=== PATIENT | male | born 1990 | race Caucasian/White ===

== ENCOUNTER 2017-04-17 16:28 | Emergency (ER) | payer OTHER ==
[~2017-04-17] VITALS: Ht 177.8 cm; Wt 84.2 kg
[~2017-04-17 16:28] MED LIST: PAXIL30 MG PO
[2017-04-17] MEDS ORDERED: CIALIS20 MG PO (17:01)
[2017-04-17 18:22] VITALS: BP 135/79
== END 2017-04-17 18:23 | disposition home or self-care (01) ==
LOC: EME 16:28
DX: H43.393 Other vitreous opacities, bilateral (principal); R51 Headache; H53.8 Other visual disturbances
CPT/HCPCS: 99281; 99284

== ENCOUNTER → 2018-02-15 | Outpatient (CLI) | payer OTHER ==
[~2018-02-15] VITALS: Ht 180.3 cm; Wt 83.9 kg
[~2018-02-15] MED LIST changes: +CIALIS20 MG PO; +NEXIUM40 MG PO
== END | disposition home or self-care (01) ==
LOC: AMB 07:00
PROC: 0DB68ZX Excision of Stomach, Via Natural or Artificial Opening Endoscopic, Diagnostic (ICD-10-PCS; principal; 2018-02-15)
PROC: 0DB48ZX Excision of Esophagogastric Junction, Via Natural or Artificial Opening Endoscopic, Diagnostic (ICD-10-PCS; principal; 2018-02-15)
DX: K29.60 Other gastritis without bleeding (principal); K21.9 Gastro-esophageal reflux disease without esophagitis; K58.9 Irritable bowel syndrome, unspecified; F41.9 Anxiety disorder, unspecified; F32.9 Major depressive disorder, single episode, unspecified; Z88.0 Allergy status to penicillin; Z87.891 Personal history of nicotine dependence
CPT/HCPCS: 88305; 88342 TC; J3010